=== PATIENT | male | born 1995 | race Caucasian/White ===

== ENCOUNTER 2018-05-20 17:36 | Emergency (ER) | payer OTHER ==
[~2018-05-20] VITALS: Ht 175.3 cm; Wt 93.0 kg
[2018-05-20 17:41] VITALS: BP 131/89
--- NOTE | 2018-05-20 17:56 | ED THROAT/DENTAL COMPLAINT ---
History of Present Illness General Chief Complaint: General Adult Stated Complaint: PAIN FROM WISDOM TEETH REMOVAL ON RT SIDE Source: patient Exam Limitations: no limitations Vital Signs & Intake/Output Vital Signs & Intake/Output Vital Signs Date Time Temp Pulse Resp B/P B/P Pulse O2 O2 Flow FiO2 Mean Ox Delivery Rate 05/20 1741 97.6 71 16 131/89 98 Room Air Allergies Coded Allergies: Penicillins (Severe, UNKNOWN 05/20/18) amoxicillin (Severe, UNKNOWN 05/20/18) Triage Note: PT TO ER C/C CONTINUED PAIN AT SITE OF WISDOM TOOTH EXTRACTION, PER PT RAN OUT OF HYDROCODONE. Triage Nurses Notes Reviewed? yes Onset: Gradual Duration: day(s): Timing: recent history HPI: 22-year-old male presents emergency department complaining of right-sided dental pain status post wisdom teeth extraction. Patient reports having wisdom teeth extracted on 05/16 at [facility]. Patient was on Vicodin which was helping with his pain however he ran out yesterday. Today patient only took ibuprofen 800 mg twice and has had persistent pain. He is unable to eat solid foods since the surgery. He denies fevers, chills, vomiting. (Paty Garcia) Past History Travel History Traveled to [place] past 21 day No Medical History Any Pertinent Medical History? none Surgical History Surgical History: non-contributory Psychosocial History What is your primary language German Tobacco Use: Current Daily Use Daily Tobacco Use Amount/Type: => 5 Cigarettes daily Family History Hx Contributory? No (Paty Garcia) Review of Systems Review of Systems Constitutional: Reports: no symptoms. EENTM: Reports: see HPI. Respiratory: Reports: no symptoms. Cardiovascular: Reports: no symptoms. GI: Reports: no symptoms. Genitourinary: Reports: no symptoms. Musculoskeletal: Reports: no symptoms. Skin: Reports: no symptoms. Neurological/Psychological: Reports: no symptoms. Hematologic/Endocrine: Reports: no symptoms. Immunologic/Allergic: Reports: no symptoms. All Other Systems: Reviewed and Negative (Paty Garcia) Physical Exam Physical Exam General Appearance: well developed/nourished, no apparent distress, alert, awake Head: atraumatic, normal appearance Eyes: Bilateral: normal appearance. Nose: normal inspection Mouth/Throat: normal mouth inspection, pharynx normal, healing gingiva s/p wisdom tooth extraction bilaterally, no erythema or significant swelling, no discharge, no trismus Neck: normal inspection, supple, full range of motion, no LAD Cardiovascular/Respiratory: no respiratory distress Back: normal inspection, normal range of motion Neurologic/Psych: awake, alert, oriented x 3 Skin: intact, normal color, warm/dry Core Measures ACS in differential dx? No Sepsis Present: No Sepsis Focused Exam Completed? No (Cheryl LOFTON,Paty Roberts) Progress Differential Diagnosis: carious tooth, odontogenic abscess, santy-tonsillar abscess, stomatitis/gingivitis, strep pharyngitis, post operative pain Plan of Care: Patient's gums are healing status post wisdom tooth extraction. There is no evidence of infection at this time. Patient recently ran out of his Vicodin. I discussed with the patient the risks of continued opiate use including opiate dependence and addiction. I informed the patient that it is safer to continue with ibuprofen 800 mg and Tylenol persistent pain. Patient agrees with this plan. He has a follow-up scheduled with his oral surgeon for 05/23. (Paty Garcia) Departure Departure Disposition: HOME OR SELF CARE Condition: Stable Clinical Impression Primary Impression: Pain, dental Secondary Impressions: [place] teeth extracted Qualifiers: Tooth loss class: unspecified tooth loss Qualified Code: K08.409 - Partial loss of teeth, unspecified cause, unspecified class Referrals: Patient Has No Primary Care Dr (PCP/Family) Additional Instructions: Take ibuprofen 800mg three times a day and tylenol 650-1000mg up to four times a day. Follow up with your oral surgeon as scheduled. Return with worsening symptoms or concerns. Please note that there might be incidental findings in your evaluation that are unrelated to the current emergency department visit. Please notify your primary care doctor about this emergency department visit in order to obtain and review all of the testing performed so that these incidental findings can be monitored as needed. If you had an x-ray performed, please understand that some fractures may not be seen on the initial set of x-rays. If your symptoms persist you might need a repeat set of x-rays to check for such a fracture. If you had a laceration evaluated, please understand that foreign bodies such as glass or wood may not be visible to the naked eye or on plain x-rays. If the wound becomes red, swollen, increasingly more painful or if there is any drainage from the wound, please have it reevaluated by a physician for the possibility of a retained foreign body. If you're unable to follow up as outlined in the discharge instructions please return to the emergency department. Thank you for choosing the [facility] Emergency Department for your care. It was a pleasure to serve you today. Departure Forms: Customer Survey General Discharge Information (Cheryl LOFTON,Paty Roberts) PA/STEWARD/STEWARDESS TOURIST CLASS Co-Sign Statement Statement: ED Attending supervision documentation- [] I saw and evaluated the patient. I have also reviewed all the pertinent lab results and diagnostic results. I agree with the findings and the plan of care as documented in the PA's/STEWARD/STEWARDESS TOURIST CLASS's documentation. [X] I have reviewed the ED Record and agree with the PA's/STEWARD/STEWARDESS TOURIST CLASS's documentation. [] Additions or exceptions (if any) to the PAs/STEWARD/STEWARDESS TOURIST CLASS's note and plan are summarized below: [] (Sae ORNELAS,Suraj Covington)
== END 2018-05-20 18:12 ==
LOC: ERH 17:36
DX: K08.89 Other specified disorders of teeth and supporting structures (principal)
CPT/HCPCS: 99282

== ENCOUNTER 2018-06-05 18:45 | Emergency (ER) | payer OTHER ==
[~2018-06-05] VITALS: Ht 172.7 cm; Wt 95.3 kg
[2018-06-05 18:52] VITALS: BP 131/73
[2018-06-06] MEDS ORDERED: CLINDAMYCIN HC150 M1 PO (20:56)
== END 2018-06-05 19:33 | disposition admitted as inpatient to this hospital (09) ==
LOC: ERH 18:45
DX: R22.0 Localized swelling, mass and lump, head (principal)

== ENCOUNTER 2018-06-06 19:55 | Emergency (ER) | payer OTHER ==
[2018-06-06 20:00] VITALS: BP 138/80
[2018-06-06] MEDS ORDERED: CLINDAMYCIN HC150 M1 PO (20:56)
--- NOTE | 2018-06-06 20:56 | ED GENERAL ADULT ---
History of Present Illness General Chief Complaint: Sore Throat, Dental Pain Stated Complaint: "RT JAW SWOLLEN" Source: patient Exam Limitations: no limitations Vital Signs & Intake/Output Vital Signs & Intake/Output Vital Signs Date Time Temp Pulse Resp B/P B/P Pulse O2 O2 Flow FiO2 Mean Ox Delivery Rate 06/06 2000 96.1 84 20 138/80 98 Room Air Allergies Coded Allergies: Penicillins (Severe, UNKNOWN 06/05/18) amoxicillin (Severe, UNKNOWN 06/05/18) Reconcile Medications Clindamycin HCl 150 MG CAPSULE 3 CAP PO TID dental infection Triage Note: PT TO TRIAGE C/O R SIDE JAW SWOLLEN AND PAINFUL S/P WISDOM TEETH REMOVAL 2 WEEKS AGO. HAS NOT CONTACTED ORAL SURGEON, BUT THEN FAMILY MEMBER IN TRIAGE STATED "YES WE DID THERES AN APPOINTMENT NEXT WEEK." PT DENIES. Triage Nurses Notes Reviewed? yes Onset: Gradual Duration: day(s): Timing: constant HPI: 22-year-old otherwise healthy male presenting with facial swelling 4-5 days. Patient reports that he had all 4 wisdom teeth extracted 2 weeks ago. He had minimal postoperative pain and swelling that had resolved. Then developed new facial swelling on the right side 4-5 days ago, endorses mild associated pain, but states that his pain has been tolerable and he is more concerned about the swelling. Denies fevers, drainage, nausea, vomiting. Denies trauma. (Destiny Bingham) Past History Travel History Traveled to [place] past 21 day No Medical History Any Pertinent Medical History? none Neurological: NONE EENT: NONE Cardiovascular: NONE Respiratory: NONE Gastrointestinal: NONE Hepatic: NONE Renal: NONE Musculoskeletal: NONE Psychiatric: NONE Endocrine: NONE Blood Disorders: NONE Cancer(s): NONE TUNNELLER/Reproductive: NONE Surgical History Surgical History: non-contributory Psychosocial History What is your primary language Turkish Tobacco Use: Current Daily Use Daily Tobacco Use Amount/Type: => 5 Cigarettes daily ETOH Use: denies use Family History Hx Contributory? No (Destiny Bingham) Review of Systems Review of Systems Constitutional: Reports: no symptoms. EENTM: Reports: see HPI. Respiratory: Reports: no symptoms. Cardiovascular: Reports: no symptoms. GI: Reports: no symptoms. Genitourinary: Reports: no symptoms. Musculoskeletal: Reports: no symptoms. Skin: Reports: no symptoms. Neurological/Psychological: Reports: no symptoms. Hematologic/Endocrine: Reports: no symptoms. Immunologic/Allergic: Reports: no symptoms. All Other Systems: Reviewed and Negative (Destiny Bingham) Physical Exam Physical Exam General Appearance: well developed/nourished, no apparent distress, alert, awake , comfortable Head: atraumatic, normal appearance Eyes: Bilateral: normal appearance. Ears, Nose, Throat: on exam of the oral cavity all for surgical sites appear to be healing well, no purulent drainage, no erythema, no gingivitis, there is only minimal tenderness to palpation along the surgical sites. There is trace facial edema of the right side when compared to the left. No edema of the neck. No lymphadenopathy. Neck: normal inspection Respiratory: normal breath sounds, lungs clear Cardiovascular: regular rate/rhythm Gastrointestinal: soft, non-tender Back: normal inspection Extremities: normal inspection Neurologic/Psych: awake, alert, oriented x 3, normal gait, normal mood/affect Skin: intact, normal color, warm/dry Core Measures ACS in differential dx? No CVA/TIA Diagnosis: No Sepsis Present: No Sepsis Focused Exam Completed? No (Destiny Bingham) Progress Differential Diagnoses I considered the following diagnoses in my evaluation of the patient: [ Postoperative edema versus postop infection versus abscess, low concern for Henry angina] Plan of Care: Surgical sites appear to be healing well and there are no signs of superficial infection however will cover for questionable early post op infection with clindamycin. Patient has an appointment to follow up with his oral surgeon next week and was instructed to follow-up as scheduled. Given strict return precautions. Initial ED EKG: none (Destiny Bingham) Departure Departure Disposition: HOME OR SELF CARE Condition: Stable Clinical Impression Primary Impression: Pain, dental Secondary Impressions: Facial swelling Referrals: Patient Has No Primary Care Dr (PCP/Family) Additional Instructions: Begin taking clindamycin as prescribed. Follow-up with your oral surgeon as scheduled. Return to the emergency department for any new or worsening symptoms. Departure Forms: Customer Survey General Discharge Information Prescriptions: Current Visit Scripts Clindamycin HCl 3 CAP PO TID #63 CAP (Destiny Bingham) PA/MYCOLOGY TEACHER Co-Sign Statement Statement: ED Attending supervision documentation- I saw and evaluated the patient. I have also reviewed all the pertinent lab results and diagnostic results. I agree with the findings and the plan of care as documented in the PA's/MYCOLOGY TEACHER's documentation. x I have reviewed the ED Record and agree with the PA's/MYCOLOGY TEACHER's documentation. [] Additions or exceptions (if any) to the PAs/MYCOLOGY TEACHER's note and plan are summarized below: [] (Ryan ORNELAS,Aidan) Critical Care Note Critical Care Note Critical Care Time: non-applicable (Jaime LOFTON,Destiny)
== END 2018-06-06 21:15 ==
LOC: ERH 19:55
DX: R22.0 Localized swelling, mass and lump, head (principal); K08.89 Other specified disorders of teeth and supporting structures